=== PATIENT | male | born 1955 | race Caucasian/White ===

== ENCOUNTER → 2016-05-07 | Outpatient (CLI) | payer BC ==
[2016-05-07 16:41] VITALS: BP 122/74
== END ==
LOC: MHUC 16:11
PROVIDERS: ATTEND Physician Assistant
DX: L08.89 Other specified local infections of the skin and subcutaneous tissue (principal)
CPT/HCPCS: 99213

== ENCOUNTER 2016-05-09 13:16 | Emergency (ER) | payer BC ==
[~2016-05-09] VITALS: Ht 185.4 cm; Wt 119.0 kg
[2016-05-09] MEDS ORDERED: KETOROLAC 60 MG/2 ML (TORADOL) VIAL IM ONE (13:40)
[2016-05-09 14:49] LABS: BASOPHILS % (AUTO) 0 % (0-2); EOSINOPHILS # (AUTO) 0.1 10^3uL; EOSINOPHILS % (AUTO) 1 % (0-4); LYMPHOCYTES # (AUTO) 1.4 X10^3; MEAN CORPUSCULAR HEMOGLOBIN 30.9 PG (26.0-34.0); MEAN CORPUSCULAR HGB CONC 35.4 g/dL (31.0-37.0); MEAN CORPUSCULAR VOLUME 87 FL (80-100); MEAN PLATELET VOLUME 10.5 FL (6.0-9.5); MONOCYTES # (AUTO) 1.1 X10^3; MONOCYTES % (AUTO) 11 % (3-11); NEUTROPHILS # (AUTO) 7.1 X10^3; NEUTROPHILS % (AUTO) 73 % (51-67); PLATELET COUNT 195 10^3uL (150-450); WHITE BLOOD COUNT 9.74 10^3uL (4.0-11.0)
[2016-05-09 15:00] LABS: ALBUMIN 3.9 g/dL (3.4-5.0); ANION GAP 13.3 MEQ/L (3-15); CALCULATED IONIZED CALCIUM 3.8 mg/dL (3.8-4.6); TOTAL PROTEIN 7.1 g/dL (6.4-8.5)
[2016-05-09 15:10] VITALS: BP 131/78
[2016-05-09 15:26] LABS: ERYTHROCYTE SEDIMENTATION RT* 30 mm/hr (0-19)
== END 2016-05-09 15:22 | disposition home or self-care (01) ==
LOC: ED 13:17
DX: M10.071 Idiopathic gout, right ankle and foot (principal)
CPT/HCPCS: 36415; 80053; 84550; 85025; 85652; 86140; 96372; 99282; J1885; 99281

== ENCOUNTER → 2016-05-09 | Outpatient (CLI) | payer BC ==
[2016-05-09 11:25] VITALS: BP 118/68
== END ==
LOC: MHUC 09:16
PROVIDERS: ATTEND Physician Assistant
DX: L08.89 Other specified local infections of the skin and subcutaneous tissue (principal)

== ENCOUNTER 2016-05-13 17:22 | Inpatient (IN) | payer BC ==
[~2016-05-13] VITALS: Ht 185.4 cm; Wt 117.8 kg
[2016-05-13] MEDS ORDERED: VANCOMYCIN 1,000 MG in SODIUM CHLORIDE 250 ML IV ONE (17:30)
[2016-05-13] MEDS ORDERED: VANCOMYCIN PHARMACY PROTOCOL IV SCH ×2 (17:30)
[2016-05-13] MEDS ORDERED: ACETAMINOPHEN 325 MG TAB (TYLENOL) PO PRN (17:30)
[2016-05-13] MEDS ORDERED: DEXTROSE 50% 25 GM/50 ML SYRINGE IV PRN (17:30)
[2016-05-13] MEDS ORDERED: PROMETHAZINE HCL INJ 12.5 MG in SODIUM CHLORIDE 25 ML IV PRN (17:30)
[2016-05-13] MEDS ORDERED: MAGNESIUM HYDROXIDE 80MG/ML (MILK OF MAGNESIA) 30 ML UDC PO PRN (17:30)
[2016-05-13] MEDS ORDERED: DEXTROSE ORAL GEL (GLUTOSE 40%) 15 GM TUBE PO PRN (17:30)
[2016-05-13] MEDS ORDERED: DOCUSATE SODIUM 100 MG (COLACE) CAP PO PRN (17:30)
[2016-05-13] MEDS: INSULIN LISPRO 1 UNIT/0.01 ML (HUMALOG) DOSE SC SCH ×2 (17:30→20:25)
[2016-05-13] MEDS ORDERED: POLYETHYLENE GLYCOL 17 GM (MIRALAX) PACKET PO PRN (17:30)
[2016-05-13] MEDS ORDERED: MAG HYDROX/AL HYDROX/SIMETH 200-200-20/5 ML (MAG-AL PLUS) 30 ML UDC PO PRN (17:30)
[2016-05-13] MEDS ORDERED: GLUCAGON EMERGENCY 1 MG/KIT IM PRN (17:30)
[2016-05-13] MEDS ORDERED: ONDANSETRON 4 MG (ZOFRAN) ORAL DISSOLVE TAB PO PRN (17:30)
[2016-05-13] MEDS ORDERED: CALCIUM CARBONATE CHEWABLE 300 MG (TUMS) TABLET PO PRN (17:30)
--- NOTE | 2016-05-13 17:30 | NUR ---
Patient admitted to room [address] Ching's office.
[2016-05-13 17:47] VITALS: BP 131/54
[2016-05-13 17:58] VITALS: BP 131/54
[2016-05-13 18:20] LABS: BASOPHILS % (AUTO) 0 % (0-2); EOSINOPHILS # (AUTO) 0.2 10^3uL; EOSINOPHILS % (AUTO) 2 % (0-4); MEAN CORPUSCULAR HEMOGLOBIN 31.2 PG (26.0-34.0); MEAN CORPUSCULAR VOLUME 87 FL (80-100); MONOCYTES # (AUTO) 1.3 X10^3; MONOCYTES % (AUTO) 11 % (3-11); NEUTROPHILS # (AUTO) 10.2 X10^3; NEUTROPHILS % (AUTO) 79 % (51-67); PLATELET COUNT 244 10^3uL (150-450); WHITE BLOOD COUNT 12.79 10^3uL (4.0-11.0)
[2016-05-13] MEDS ORDERED: SODIUM CHLORIDE 100 ML ONE (18:20)
--- NOTE | 2016-05-13 18:20 | NUR ---
IV access obtained in the right forearm. Vanco 1 gram infusing.
[2016-05-13] MEDS: NS FLUSH 10 ML PRN IV ×2 (18:22→20:56)
[2016-05-13] MEDS: metFORMIN 500 MG (GLUCOPHAGE) TABLET PO SCH (18:23)
[2016-05-13 18:49] LABS: ANION GAP 14.1 MEQ/L (3-15); CALCULATED IONIZED CALCIUM 3.7 mg/dL (3.8-4.6); TOTAL PROTEIN 7.5 g/dL (6.4-8.5)
[2016-05-13 18:55] LABS: MEAN CORPUSCULAR HGB CONC 35.7 g/dL (31.0-37.0)
[2016-05-13] MEDS: TERBINAFINE 1% TOP SCH (20:33)
[2016-05-13] MEDS: PIPERACILLIN/TAZOBACTAM 4.5 GM in SODIUM CHLORIDE 100 ML IV SCH (20:33)
[2016-05-14 00:32] VITALS: BP 118/54
[2016-05-14] MEDS: PIPERACILLIN/TAZOBACTAM 4.5 GM in SODIUM CHLORIDE 100 ML IV SCH ×3 (05:15→21:09)
[2016-05-14 06:04] LABS: BASOPHILS % (AUTO) 0 % (0-2); EOSINOPHILS # (AUTO) 0.2 10^3uL; EOSINOPHILS % (AUTO) 1 % (0-4); LYMPHOCYTES # (AUTO) 1.4 X10^3; MEAN CORPUSCULAR HEMOGLOBIN 30.6 PG (26.0-34.0); MEAN CORPUSCULAR HGB CONC 34.8 g/dL (31.0-37.0); MEAN CORPUSCULAR VOLUME 88 FL (80-100); MONOCYTES # (AUTO) 1.6 X10^3; MONOCYTES % (AUTO) 13 % (3-11); NEUTROPHILS # (AUTO) 9.6 X10^3; NEUTROPHILS % (AUTO) 75 % (51-67); PLATELET COUNT 244 10^3uL (150-450); WHITE BLOOD COUNT 12.91 10^3uL (4.0-11.0)
[2016-05-14] MEDS: INSULIN LISPRO 1 UNIT/0.01 ML (HUMALOG) DOSE SC SCH ×4 (06:05→21:00)
[2016-05-14 06:48] LABS: ALBUMIN 3.6 g/dL (3.4-5.0); ANION GAP 13.3 MEQ/L (3-15); PHOSPHORUS 4.4 mg/dL (2.4-4.9)
[2016-05-14 07:43] VITALS: BP 101/52
--- NOTE | 2016-05-14 07:56 | NUR ---
Pt wakens easily to verbal stimuli. Alert/oriented x4. States his leg looks better to him, not as red. And that his foot does not feel as tight or painful as yesterday. Offered Tramadol and Tylenol to premedicate in anticipation in ADLs, but pt refused meds- states "I just deal with it." Encourage patient to let nurse know if pain medications are needed. Verbalizes understanding. Will cont to monitor. Redness to Rt foot is slightly outside marker line from 05/13. warm to touch, tender to touch- pedal pulse present, skin blanchable. Will cont to monitor.
[2016-05-14] MEDS: metFORMIN 500 MG (GLUCOPHAGE) TABLET PO SCH ×2 (08:20→17:57)
[2016-05-14] MEDS: HYDROCHLOROTHIAZIDE 25 MG (HCTZ) TAB PO SCH (08:20)
[2016-05-14] MEDS: NS FLUSH 3 ML DAILY IV SCH ×2 (08:23→21:10)
[2016-05-14] MEDS: lisINopril 10 MG (PRINIVIL) TABLET PO SCH (08:23)
[2016-05-14] MEDS: ENOXAPARIN 40 MG/0.4 ML (LOVENOX) SYR SC SCH (08:24)
[2016-05-14] MEDS: TERBINAFINE 1% TOP SCH ×2 (08:24→21:20)
[2016-05-14] MEDS: VANCOMYCIN COMPOUNDED BY PHARMACY IV SCH ×2 (09:45→21:00)
[2016-05-14] MEDS ORDERED: SODIUM CHLORIDE 250 ML ONE (09:45)
[2016-05-14] MEDS: VANCOMYCIN 1750 MG in NS IV 475 ML IV SCH ×2 (09:47→21:09)
--- NOTE | 2016-05-14 10:32 | NUR ---
NUTRITION ASSESSMENT Level 1 Patient: Nito Moser Age/Sex: 60/M Date Screened: 05-14-16 Weight: 259.1#/117.8 kg Height: 73 inches Primary Diagnosis: right foot cellulitis Diet Order: medium diabetic Relevant labs: glucose 114, Hgb A1c 5.2 Food allergies: N Nutrition Assessment Criteria Age over 80: N Body Mass Index (BMI) under 19: N Admission Screening Indicates Risk? N Moderate/High Risk Diagnosis: N TPN or PPN: N NPO or clear liquid diet: N Serum Glucose <70 or >180: N Hgb A1c >6.7: N Total: 0 points Risk Screen: _X_ Patient at low nutritional risk based on available data; reevaluate in 5-7 days __ Patient at moderate nutritional risk based on available data; reevaluate in 3-5 days __ Patient at high nutritional risk; complete Nutrition Assessment within 48 hours of admission. Comments: Pt. denied GI concerns or weight changes. States good appetite, eating 100% medium diabetic diet. Will reassess as documented above.
--- NOTE | 2016-05-14 10:36 | NUR ---
Vancomycin Dosing: Pharmacy managed S: Rt foot cellulitis: Empiric coverage with Pip/Tazo & vancomycin. Cultures pending. O: 60 y/o Male Pt wt. = 118 kg ABW = 95kg SCr = 0.79 CrCl = 130 ml/min A/P: Vancomycin 1750 mg IV q12h. Trough prediction = 16.8 mcg/ml fo therapy goal of 15-20mcg/ml. Trough to be drawn before 5th dose (05-16-16 @ 0930). Will continue to monitor and adjust if needed. Addendum: 05/14/16 at 1048 by Elizabet Armenta PHARM TROUGH TIMED FOR 05-16-16 @ 0830.
--- NOTE | 2016-05-14 14:37 | NUR ---
MULTIDISCIPLINARY MTG/DR. HOLT: Pt. admitted with cellulitis of the foot and placed on broad spectrum antibiotics. Pt. had been treated in the outpatient setting but saw no improvement. Pt. will receive a tetanus shot during his stay. Pt. to possibly discharge home tomorrow on Augmentin. No discharge needs identified at this time.
[2016-05-14] MEDS ORDERED: TETANUS, DIPTHERIA, PERTUSSIS (ADACELL) VACCINE 0.5 ML VIAL IM ONE (15:00)
--- NOTE | 2016-05-14 16:09 | NUR ---
Tdap IM given in Lt Deltoid.
[2016-05-14 16:10] VITALS: BP 109/61
--- NOTE | 2016-05-14 18:41 | NUR ---
Pt ate supper without difficulty. SL at this time.
--- NOTE | 2016-05-14 19:50 | NUR ---
Pt is sitting up in recliner visiting with friends, alert and oriented x 4, Resp are even and nonlabored, LCTAB, HRRR, BS are active x 4 quadrants. Right foot is swollen, +3 edema, has large blister filled area to right small toe, and scab to bottom of right second toe. Encouraged pt to keep feet elevated and sock and shoe off of that foot. SL is patent, no redness, swelling, or s/s of infection noted at this time. Pt verbalizes understanding at this time. Denies pain or discomfort at this time. Call light is in reach, will continue to monitor.
--- NOTE | 2016-05-14 21:35 | NUR ---
Pt complains of pain to right foot, rates 6/10, Gave 1 tab PO of Tramadol 50mg PO for discomfort. Will continue to monitor.
[2016-05-15 00:22] VITALS: BP 131/65
--- NOTE | 2016-05-15 04:47 | NUR ---
Pt has been resting in bed asleep most of this shift, call light is in reach, will continue to monitor.
[2016-05-15] MEDS: PIPERACILLIN/TAZOBACTAM 4.5 GM in SODIUM CHLORIDE 100 ML IV SCH ×3 (05:57→21:23)
[2016-05-15 06:16] LABS: ALBUMIN 3.6 g/dL (3.4-5.0); PHOSPHORUS 4.4 mg/dL (2.4-4.9)
[2016-05-15 06:25] LABS: BASOPHILS % (AUTO) 0 % (0-2); EOSINOPHILS # (AUTO) 0.2 10^3uL; EOSINOPHILS % (AUTO) 2 % (0-4); LYMPHOCYTES # (AUTO) 1.3 X10^3; MEAN CORPUSCULAR HEMOGLOBIN 30.8 PG (26.0-34.0); MEAN CORPUSCULAR HGB CONC 34.8 g/dL (31.0-37.0); MEAN CORPUSCULAR VOLUME 89 FL (80-100); MEAN PLATELET VOLUME 9.9 FL (6.0-9.5); MONOCYTES # (AUTO) 1.3 X10^3; MONOCYTES % (AUTO) 12 % (3-11); NEUTROPHILS # (AUTO) 8.4 X10^3; NEUTROPHILS % (AUTO) 75 % (51-67); PLATELET COUNT 249 10^3uL (150-450); WHITE BLOOD COUNT 11.28 10^3uL (4.0-11.0)
[2016-05-15] MEDS: INSULIN LISPRO 1 UNIT/0.01 ML (HUMALOG) DOSE SC SCH ×4 (07:29→21:00)
[2016-05-15 07:40] VITALS: BP 136/78
--- NOTE | 2016-05-15 07:42 | NUR ---
Pt resting in bed, SCDs in place- taken off now at pt request. Rt foot remains Red, swollen, small crusted area below 4th toe. Pt denies need for pain meds. Encouraged pt to keep RLE elevated today. IV intact to Rt wrist- Zosyn infusing as ordered. Remains on RA- Resp even, nonlab. States he will get up to dress before bfst. Call light within reach- calls appropriately for assist.
[2016-05-15] MEDS: lisINopril 10 MG (PRINIVIL) TABLET PO SCH (08:27)
[2016-05-15] MEDS: ENOXAPARIN 40 MG/0.4 ML (LOVENOX) SYR SC SCH (08:27)
[2016-05-15] MEDS: VANCOMYCIN COMPOUNDED BY PHARMACY IV SCH ×2 (08:27→21:00)
[2016-05-15] MEDS: HYDROCHLOROTHIAZIDE 25 MG (HCTZ) TAB PO SCH (08:27)
[2016-05-15] MEDS: metFORMIN 500 MG (GLUCOPHAGE) TABLET PO SCH ×2 (08:27→17:14)
[2016-05-15] MEDS: TERBINAFINE 1% TOP SCH ×2 (09:31→21:23)
[2016-05-15] MEDS: VANCOMYCIN 1750 MG in NS IV 475 ML IV SCH ×2 (10:24→21:23)
--- NOTE | 2016-05-15 13:30 | NUR ---
Tramadol 50mg PO given for 10/08 Rt foot pain- pain is located on top of foot at open area. Still draining clear yellow fluid from open area. IV Zosyn infusing as ordered.
[2016-05-15 16:18] VITALS: BP 127/69
--- NOTE | 2016-05-15 19:55 | NUR ---
Pt is sitting up in recliner watching tv, alert and oriented x 4, Resp are even and nonlabored, LCTAB, , BS are active x 4 quadrants. Denies pain or discomfort at this time. SL is patent, no redness, swelling, or s/s of infection noted at this time. See assessment for further information. Call light is in reach, will continue to monitor.
[2016-05-15] MEDS: NS FLUSH 3 ML DAILY IV SCH (21:24)
--- NOTE | 2016-05-15 21:25 | NUR ---
Pt complains of pain to right foot, rates 7/10, gave 2 tabs PO of Ultram 50mg for discomfort. Will continue to monitor.
[2016-05-16 00:23] VITALS: BP 104/71
--- NOTE | 2016-05-16 04:09 | NUR ---
Pt is resting in bed asleep, does not appear in pain or discomfort at this time, call light is in reach, will continue to monitor.
[2016-05-16] MEDS: PIPERACILLIN/TAZOBACTAM 4.5 GM in SODIUM CHLORIDE 100 ML IV SCH ×3 (05:14→21:06)
[2016-05-16] MEDS: INSULIN LISPRO 1 UNIT/0.01 ML (HUMALOG) DOSE SC SCH ×4 (07:30→21:00)
[2016-05-16 08:25] VITALS: BP 141/75
[2016-05-16] MEDS: metFORMIN 500 MG (GLUCOPHAGE) TABLET PO SCH ×2 (09:39→18:02)
[2016-05-16] MEDS: lisINopril 10 MG (PRINIVIL) TABLET PO SCH (09:40)
[2016-05-16] MEDS: HYDROCHLOROTHIAZIDE 25 MG (HCTZ) TAB PO SCH (09:40)
[2016-05-16] MEDS: ENOXAPARIN 40 MG/0.4 ML (LOVENOX) SYR SC SCH (09:41)
[2016-05-16] MEDS: VANCOMYCIN COMPOUNDED BY PHARMACY IV SCH ×2 (09:45→21:07)
[2016-05-16] MEDS: NS FLUSH 3 ML PRN IV (09:51)
[2016-05-16] MEDS: VANCOMYCIN 1750 MG in NS IV 475 ML IV SCH (09:56)
[2016-05-16] MEDS: TERBINAFINE 1% TOP SCH ×2 (10:43→21:07)
[2016-05-16] MEDS ORDERED: SODIUM CHLORIDE 100 ML ONE (10:46)
--- NOTE | 2016-05-16 13:21 | NUR ---
Vancomycin Dosing: Pharmacy managed S: Rt foot cellulitis O: 60 y/o Male Pt wt. = 118 kg, ABW = 95kg, SCr = 0.80, CrCl = 130 ml/min, WBC 11,300, CRP 23.5 mg/dL, vanco trough 9.3 mcg/mL, blood cx negative to date, wound cx pending. A/P: Change vancomycin dosing to 1500 mg IV q8h to achieve therapeutic goal of 15-20mcg/ml. Draw next trough prior to 5th dose (05-18-16 @ 0530). Will continue to monitor and adjust if needed.
--- NOTE | 2016-05-16 15:00 | NUR ---
MED REC COMPLETE--current med list obtained from external med history application and retail pharmacy ([facility]).
[2016-05-16 15:33] VITALS: BP 117/61
[2016-05-16] MEDS ORDERED: VANCOMYCIN 1500 MG in NS IV 300 ML IV SCH ×3 (16:00)
--- NOTE | 2016-05-16 19:35 | NUR ---
Pt is sitting up in recliner watching tv, alert and oriented x 4, Resp are even and nonlabored, LCTAB, , BS are active x 4 quadrants. Right foot continues to be red, has +2 edema to right foot, scabbed area to left small toe, and scabbed area to bottom of 2nd toe. Denies pain or discomfort at this time. SL is patent, no redness, swelling, or s/s of infection noted at this time. See assessment for further information. Call light is in reach, will continue to monitor.
[2016-05-16] MEDS: VANCOMYCIN 1500 MG in NS IV 300 ML IV SCH ×3 (21:07)
[2016-05-17 00:37] VITALS: BP 125/61
--- NOTE | 2016-05-17 04:10 | NUR ---
Pt is resting in bed asleep, does not appear in pain or discomfort at this time, call light is in reach, will continue to monitor.
[2016-05-17] MEDS: PIPERACILLIN/TAZOBACTAM 4.5 GM in SODIUM CHLORIDE 100 ML IV SCH ×3 (04:59→20:47)
[2016-05-17] MEDS: VANCOMYCIN 1500 MG in NS IV 300 ML IV SCH ×9 (04:59→20:47)
[2016-05-17] MEDS: VANCOMYCIN COMPOUNDED BY PHARMACY IV SCH ×3 (06:00→21:24)
[2016-05-17 06:05] LABS: BASOPHILS % (AUTO) 1 % (0-2); EOSINOPHILS # (AUTO) 0.4 10^3uL; EOSINOPHILS % (AUTO) 3 % (0-4); LYMPHOCYTES # (AUTO) 1.4 X10^3; MEAN CORPUSCULAR HEMOGLOBIN 29.9 PG (26.0-34.0); MEAN CORPUSCULAR HGB CONC 34.1 g/dL (31.0-37.0); MEAN CORPUSCULAR VOLUME 88 FL (80-100); MEAN PLATELET VOLUME 9.2 FL (6.0-9.5); MONOCYTES # (AUTO) 1.2 X10^3; MONOCYTES % (AUTO) 11 % (3-11); NEUTROPHILS % (AUTO) 71 % (51-67); PLATELET COUNT 306 10^3uL (150-450); WHITE BLOOD COUNT 11.14 10^3uL (4.0-11.0)
[2016-05-17 06:27] LABS: ALBUMIN 3.3 g/dL (3.4-5.0); ANION GAP 13.7 MEQ/L (3-15); TOTAL PROTEIN 6.6 g/dL (6.4-8.5)
[2016-05-17] MEDS: INSULIN LISPRO 1 UNIT/0.01 ML (HUMALOG) DOSE SC SCH ×4 (07:30→21:00)
[2016-05-17 08:00] VITALS: BP 119/75
--- NOTE | 2016-05-17 08:30 | NUR ---
IV SITE PINK & PAINFUL AT THE END OF THE NS FLUSH FOLLOWING VANCO, NO EDEMA OR BLANCHING. IVL DC'D INTACT.
[2016-05-17] MEDS: HYDROCHLOROTHIAZIDE 25 MG (HCTZ) TAB PO SCH (09:07)
[2016-05-17] MEDS: lisINopril 10 MG (PRINIVIL) TABLET PO SCH (09:07)
[2016-05-17] MEDS: ENOXAPARIN 40 MG/0.4 ML (LOVENOX) SYR SC SCH (09:08)
[2016-05-17] MEDS: metFORMIN 500 MG (GLUCOPHAGE) TABLET PO SCH ×2 (09:08→17:40)
[2016-05-17] MEDS: TERBINAFINE 1% TOP SCH ×2 (09:08→20:48)
[2016-05-17] MEDS: NS FLUSH 3 ML DAILY IV SCH (09:30)
--- NOTE | 2016-05-17 09:30 | NUR ---
RIGHT ANT FOOT WITH QUARTER SZ WOUND NOTED WAS PRESENT ON ADMISSION, YESTERDAY WOUND WAS CLOSED WITHOUT DRAINAGE, TODAY WOUND IS NOTED TO BE OOZING CLOUDY RED DRAINAGE, WHEN PT GETS UP TO CHAIR DRAINAGE INCREASES AND RUNS ONTO FLOOR. PT AMBS TO SHOWER, DURING SHOWER PT & VEHICLE AND EQUIPMENT CLEANER REPORT A GARCIA "CORE" RAISED UP IN CENTER OF LARGER WOUND & EASILY WIPED AWAY, THIS WAS REPORTED TO DR. HOLT.
--- NOTE | 2016-05-17 09:30 | NUR ---
NEW IV ANGIOCATH INSERTED IN LEFT WRIST, #20G, FLUSHES WELL WITHOUT PAIN/EDEMA. PT TO SHOWER PRIOR TO STARTING ZOSYN.
--- NOTE | 2016-05-17 13:30 | NUR ---
WOUND ON ANT RIGHT FOOT RINSED WITH SALINE, SMALL AMT MURIPICIN APPLIED TO GAUZE 4X4, THIS GAUZE PLUS 4 OTHERS WERE PLACED ON WOUND AND SECURED WITH 4" JENARO.
[2016-05-17] MEDS: MUPIROCIN 2% OINT 22 GM (BACTROBAN) TUBE TOP SCH ×2 (13:48→21:23)
[2016-05-17] MEDS: IBUPROFEN 600 MG (MOTRIN) TAB PO PRN (13:55)
[2016-05-17] MEDS ORDERED: SODIUM CHLORIDE 100 ML ONE (14:08)
[2016-05-17 16:05] VITALS: BP 117/68
--- NOTE | 2016-05-17 19:35 | NUR ---
Pt is sitting up in recliner visiting with friends, alert and oriented x 4, Resp are even and nonlabored, LCTAB, HRRR, BS are active x 4 quadrants. Right foot is swollen, +2 edema, has 1cm diameter open area below right small toe, draining clear yellow drainage, dressing is changed, had large amount of yellow drainage on dressing. Has scab to bottom of right second toe. Encouraged pt to keep feet elevated and sock and shoe off of that foot. SL is patent, no redness, swelling, or s/s of infection noted at this time. Pt verbalizes understanding at this time. Denies pain or discomfort at this time. Call light is in reach, will continue to monitor.
[2016-05-18 00:14] VITALS: BP 123/68
--- NOTE | 2016-05-18 04:19 | NUR ---
Pt is resting in bed asleep, does not appear in pain or discomfort at this time, call light is in reach, will continue to monitor.
[2016-05-18] MEDS: VANCOMYCIN COMPOUNDED BY PHARMACY IV SCH ×3 (05:11→21:57)
[2016-05-18] MEDS: VANCOMYCIN 1500 MG in NS IV 300 ML IV SCH ×9 (05:11→21:56)
[2016-05-18] MEDS: PIPERACILLIN/TAZOBACTAM 4.5 GM in SODIUM CHLORIDE 100 ML IV SCH ×2 (05:11→16:09)
[2016-05-18] MEDS: INSULIN LISPRO 1 UNIT/0.01 ML (HUMALOG) DOSE SC SCH ×4 (07:30→20:25)
[2016-05-18] MEDS: NS FLUSH 3 ML DAILY IV SCH (08:52)
[2016-05-18 08:54] VITALS: BP 121/70
[2016-05-18] MEDS: metFORMIN 500 MG (GLUCOPHAGE) TABLET PO SCH ×2 (08:57→18:38)
[2016-05-18] MEDS: ENOXAPARIN 40 MG/0.4 ML (LOVENOX) SYR SC SCH (08:57)
[2016-05-18] MEDS: HYDROCHLOROTHIAZIDE 25 MG (HCTZ) TAB PO SCH (08:57)
[2016-05-18] MEDS: lisINopril 10 MG (PRINIVIL) TABLET PO SCH (08:57)
--- NOTE | 2016-05-18 12:51 | NUR ---
MULTIDISCIPLINARY MTG/DR. LYNN: Pt. remains on vanco. Pt. was unable to discharge over the weekend due to worsening of the abscess on his foot. Will assess today and determine if Pt. is able to discharge today. No discharge needs identified at this time.
[2016-05-18] MEDS: MUPIROCIN 2% OINT 22 GM (BACTROBAN) TUBE TOP SCH ×2 (13:39→21:21)
[2016-05-18] MEDS: TERBINAFINE 1% TOP SCH ×2 (13:39→21:21)
[2016-05-18] MEDS: NS FLUSH 3 ML PRN IV ×2 (14:07→18:38)
[2016-05-18] MEDS: SODIUM CHLORIDE 100 ML INJ PRN (14:07)
[2016-05-18] MEDS ORDERED: SODIUM CHLORIDE 100 ML ONE (14:13)
[2016-05-18] MEDS: IBUPROFEN 600 MG (MOTRIN) TAB PO PRN (14:17)
[2016-05-18 16:06] VITALS: BP 135/79
--- NOTE | 2016-05-18 17:45 | NUR ---
To radiology for MRI.
--- NOTE | 2016-05-18 18:35 | NUR ---
Back on the floor. He reports pain increased while in MRI but he denies the need for any pain medication at this time. He has cooperated with cares throughout the shift but he has to be reminded to keep his foot elevated.
[2016-05-18] MEDS: NS FLUSH 10 ML PRN IV (21:57)
[2016-05-19 00:17] VITALS: BP 118/69
[2016-05-19 06:03] LABS: MEAN CORPUSCULAR HEMOGLOBIN 30.7 PG (26.0-34.0); MEAN CORPUSCULAR HGB CONC 35.2 g/dL (31.0-37.0); MEAN CORPUSCULAR VOLUME 87 FL (80-100); MEAN PLATELET VOLUME 9.2 FL (6.0-9.5); PLATELET COUNT 324 10^3uL (150-450); WHITE BLOOD COUNT 8.31 10^3uL (4.0-11.0)
[2016-05-19 06:09] LABS: BAND NEUTROPHILS % 0 % (0-6); EOSINOPHILS % 0 % (0-4); LYMPHOCYTES # 0.7 #; MONOCYTES # 0.8 #; MONOCYTES % 10 % (3-11); SEGMENTED NEUTROPHILS % 82 % (51-67); TOTAL CELLS COUNTED 100
[2016-05-19 06:10] LABS: RBC MORPH NORMAL (NORMAL)
[2016-05-19] MEDS: VANCOMYCIN COMPOUNDED BY PHARMACY IV SCH ×3 (06:11→21:28)
[2016-05-19] MEDS: NS FLUSH 10 ML PRN IV (06:11)
[2016-05-19] MEDS: VANCOMYCIN 1500 MG in NS IV 300 ML IV SCH ×9 (06:11→21:28)
[2016-05-19] MEDS: INSULIN LISPRO 1 UNIT/0.01 ML (HUMALOG) DOSE SC SCH ×4 (06:14→21:00)
--- NOTE | 2016-05-19 06:17 | NUR ---
Pt rests well throughout the night. Has complied with elevating foot most of the time. Ambulates several laps around unit this shift. Denies the need for pain medication. Resp even and non labored on RA. Vanco infusing w/o difficulty.
[2016-05-19 06:41] LABS: ALBUMIN 3.1 g/dL (3.4-5.0); ANION GAP 12.7 MEQ/L (3-15); CALCULATED IONIZED CALCIUM 4.1 mg/dL (3.8-4.6); ERYTHROCYTE SEDIMENTATION RT* 76 mm/hr (0-19); MAGNESIUM* 2.2 mg/dL (1.6-2.3); TOTAL PROTEIN 6.3 g/dL (6.4-8.5)
[2016-05-19 08:05] VITALS: BP 124/73
[2016-05-19] MEDS: NS FLUSH 3 ML DAILY IV SCH (08:51)
[2016-05-19] MEDS: lisINopril 10 MG (PRINIVIL) TABLET PO SCH (09:08)
[2016-05-19] MEDS: HYDROCHLOROTHIAZIDE 25 MG (HCTZ) TAB PO SCH (09:08)
[2016-05-19] MEDS: ENOXAPARIN 40 MG/0.4 ML (LOVENOX) SYR SC SCH (09:08)
[2016-05-19] MEDS: metFORMIN 500 MG (GLUCOPHAGE) TABLET PO SCH ×2 (09:08→18:08)
--- NOTE | 2016-05-19 12:00 | NUR ---
Dressing on right foot removed so Dr. Nava can assess the wound. Discussed patient's MRI findings with MAMADOU and
--- NOTE | 2016-05-19 12:15 | NUR ---
Anesthesia notified of request for PICC line placement.
[2016-05-19] MEDS: TERBINAFINE 1% TOP SCH ×2 (13:00→21:27)
[2016-05-19] MEDS: MUPIROCIN 2% OINT 22 GM (BACTROBAN) TUBE TOP SCH ×2 (13:00→21:27)
--- NOTE | 2016-05-19 14:00 | NUR ---
Dressing remains off of right foot because Dr. Brasher will be in for a consultation.
[2016-05-19] MEDS: NS FLUSH 3 ML PRN IV (14:15)
[2016-05-19] MEDS: SODIUM CHLORIDE 100 ML INJ PRN (14:20)
[2016-05-19] MEDS: IBUPROFEN 600 MG (MOTRIN) TAB PO PRN (14:29)
[2016-05-19 15:50] VITALS: BP 144/83
--- NOTE | 2016-05-19 16:00 | NUR ---
Patient has cooperated better with elevating right foot this afternoon and it is significantly less red and less edematous. The patient is cooperative with staff but frustrated with his new diagnosis and the uncertainty that goes with it. Educated patient on the importance of keeping foot elevated.
--- NOTE | 2016-05-19 17:30 | NUR ---
Dr. Anshu archer for consultation.
--- NOTE | 2016-05-19 17:45 | NUR ---
Right foot dressing reapplied after consult.
--- NOTE | 2016-05-19 18:45 | NUR ---
Consent for OR on the chart.
[2016-05-19 23:29] VITALS: BP 127/76
[2016-05-20] VITALS (12 sets, daily range): BP systolic 119–134; BP diastolic 64–82
--- NOTE | 2016-05-20 03:43 | NUR ---
Pt is resting in bed asleep, does not appear in pain or discomfort at this time, call light is in reach, will continue to monitor.
[2016-05-20] MEDS: VANCOMYCIN 1500 MG in NS IV 300 ML IV SCH ×9 (05:10→21:25)
[2016-05-20] MEDS: VANCOMYCIN COMPOUNDED BY PHARMACY IV SCH ×3 (05:10→21:25)
[2016-05-20 06:16] LABS: MEAN CORPUSCULAR HEMOGLOBIN 29.9 PG (26.0-34.0); MEAN CORPUSCULAR HGB CONC 34.4 g/dL (31.0-37.0); MEAN CORPUSCULAR VOLUME 87 FL (80-100); MEAN PLATELET VOLUME 8.9 FL (6.0-9.5); PLATELET COUNT 337 10^3uL (150-450); WHITE BLOOD COUNT 7.79 10^3uL (4.0-11.0)
[2016-05-20 06:36] LABS: ALBUMIN 3.7 g/dL (3.4-5.0); ANION GAP 13.7 MEQ/L (3-15); CALCULATED IONIZED CALCIUM 3.9 mg/dL (3.8-4.6); TOTAL PROTEIN 7.3 g/dL (6.4-8.5)
[2016-05-20 06:44] LABS: BAND NEUTROPHILS % 3 % (0-6); EOSINOPHILS % 4 % (0-4); LYMPHOCYTES # 1.9 #; MONOCYTES # 0.6 #; MONOCYTES % 9 % (3-11); RBC MORPH NORMAL (NORMAL); SEGMENTED NEUTROPHILS % 59 % (51-67); TOTAL CELLS COUNTED 100
[2016-05-20 06:58] LABS: ERYTHROCYTE SEDIMENTATION RT* 68 mm/hr (0-19)
[2016-05-20] MEDS: INSULIN LISPRO 1 UNIT/0.01 ML (HUMALOG) DOSE SC SCH ×4 (07:30→20:28)
[2016-05-20] MEDS: metFORMIN 500 MG (GLUCOPHAGE) TABLET PO SCH ×2 (07:46→17:36)
[2016-05-20] MEDS ORDERED: LACTATED RINGERS 1,000 ML IV ONE (07:50)
--- NOTE | 2016-05-20 07:57 | NUR ---
Pt resting quietly in bed, alert & oriented, speech clear, denies pain. Lungs clear, on room air. Abdomen soft, non-tender, active bowel sounds. Pt has been NPO since midnight, has snacks at bedside, though states "I haven't touched them, and I won't". Right foot elevated on pillow, wrapped, no sock, no drainage noted. Slight 1+ edema noted to mid doll on right leg. No edema noted to left leg. SL to left FA patent, LR with straight tubing ready for surgery. Pt verbalizes understanding of surgical procedure this morning, consents signed on prior shift. Call light in reach. Will round frequently for cares.
--- NOTE | 2016-05-20 08:29 | NUR ---
Surgery staff here to take pt down to pre-op area.
[2016-05-20] MEDS ORDERED: LACTATED RINGERS 1,000 ML IV SCH (08:30)
[2016-05-20] MEDS ORDERED: BUPIVACAINE 0.25% (MARCAINE) 30 ML VIAL ONE (08:52)
[2016-05-20] MEDS ORDERED: LIDOCAINE 1% (XYLOCAINE) 20 ML VIAL ONE (08:53)
[2016-05-20] MEDS ORDERED: SUCCINYLCHOLINE 20 MG/ML 10 ML VIAL ONE (08:54)
[2016-05-20] MEDS ORDERED: PROPOFOL 20 ML IV ONE (08:54)
[2016-05-20] MEDS ORDERED: ALFENTANIL 1,000 MCG/2 ML AMP IV ONE (08:55)
[2016-05-20] MEDS: MUPIROCIN 2% OINT 22 GM (BACTROBAN) TUBE TOP SCH (09:00)
[2016-05-20] MEDS: TERBINAFINE 1% TOP SCH (09:00)
[2016-05-20] MEDS: NS FLUSH 3 ML DAILY IV SCH (09:00)
[2016-05-20] MEDS ORDERED: BACITRACIN/POLYMYXIN OINTMENT 1 PACKET TOP ONE ×2 (09:35→09:37)
[2016-05-20] MEDS ORDERED: MUPIROCIN 2% OINT 22 GM (BACTROBAN) TUBE TOP ONE (09:37)
--- NOTE | 2016-05-20 10:44 | NUR ---
Pt returns from PACU, alert & oriented, speech clear. States "little waves of pain" but denies need for pain medication at this time. Right foot wrapped and placed on pillow for elevation. PICC line to left AC patent, infusing on transfer.
[2016-05-20] MEDS: HYDROCHLOROTHIAZIDE 25 MG (HCTZ) TAB PO SCH (12:02)
[2016-05-20] MEDS: lisINopril 10 MG (PRINIVIL) TABLET PO SCH (12:02)
[2016-05-20] MEDS: IBUPROFEN 600 MG (MOTRIN) TAB PO PRN (13:10)
--- NOTE | 2016-05-20 19:35 | NUR ---
Pt is sitting up in recliner visiting with friends and family. Alert and oriented x 4, Resp are even and nonlabored, LCTAB, HRRR, BS are active x 4 quadrants. Pt has kept leg elevated, dressing to right foot is clean, dry, and intact. Supplies for daily dressing change are on counter by bathroom sink. Pt rates pain, 3/10 at this time. Denies need for pain medication. PICC to LAC is patent, no redness, swelling, or s/s of infection noted at this time. Pt denies needs at this time, and is educated to call for assistance when getting up. Call light is in reach, will continue to monitor.
[2016-05-21 00:13] VITALS: BP 112/61
--- NOTE | 2016-05-21 04:15 | NUR ---
Pt is resting in bed with asleep, right leg is elevated, does not appear in pain or discomfort at this time. Call light is in reach, will continue to monitor.
[2016-05-21] MEDS: VANCOMYCIN 1500 MG in NS IV 300 ML IV SCH ×9 (05:17→21:38)
[2016-05-21] MEDS: VANCOMYCIN COMPOUNDED BY PHARMACY IV SCH ×3 (05:17→21:38)
[2016-05-21 07:30] VITALS: BP 136/69
[2016-05-21] MEDS: INSULIN LISPRO 1 UNIT/0.01 ML (HUMALOG) DOSE SC SCH ×4 (07:30→21:00)
[2016-05-21] MEDS ORDERED: MUPIROCIN 2% OINT 22 GM (BACTROBAN) TUBE TOP SCH (09:00)
[2016-05-21] MEDS ORDERED: TERBINAFINE 1% TOP SCH (09:00)
[2016-05-21] MEDS: NS FLUSH 3 ML DAILY IV SCH (09:00)
[2016-05-21] MEDS ORDERED: LIDOCAINE PF 1% (XYLOCAINE) 2 ML VIAL INJ ONE (09:35)
[2016-05-21] MEDS: HYDROCHLOROTHIAZIDE 25 MG (HCTZ) TAB PO SCH (09:41)
[2016-05-21] MEDS: metFORMIN 500 MG (GLUCOPHAGE) TABLET PO SCH ×2 (09:41→17:16)
[2016-05-21] MEDS: lisINopril 10 MG (PRINIVIL) TABLET PO SCH (09:42)
[2016-05-21] MEDS: ENOXAPARIN 40 MG/0.4 ML (LOVENOX) SYR SC SCH (09:42)
[2016-05-21] MEDS: LIDOCAINE 1% (XYLOCAINE) 20 ML VIAL INJ PRN (09:55)
--- NOTE | 2016-05-21 11:17 | NUR ---
MULTIDISCIPLINARY MTG/DR. CRUZ: Pt. to OR yesterday for drainage of abscess and dbridement of skin and soft tissue right distal foot. Pt. also had PICC line inserted. The redness has been decreasing. PT has been ordered to work with Pt. on heal walking and to assess Pt. for needs at home to remain safe. Dr. Brasher would like Pt. to be weight bearing on on his right foot until he is cleared by surgery. Pt. has been walking with a walker while at the hospital. Pt. will need outpatient IV antibiotics once a day for six weeks upon discharge. SW visited with Pt. about his outpatient antibiotics and his need for possible wound care. Pt. stated if they want me to pack my foot like they have been doing then he won't be able to do that himself. SW discussed going to [facility] for antibiotics and getting wound care through their wound care clinic since we don't have a wound care clinic here. SW also reviewed having home health services and receiving his needed services through them. SW explained what he would be financially responsible for and that he would have to be considered home bound. Pt. stated he wouldn't be able to be home bound. Pt. was agreeable to receiving services at the hospital. Addendum: 05/21/16 at 1323 by Irena Saba After visiting with PT NAT discovered Pt. would be able to come in as an outpatient for his wound care. PT would try to coordinate with him so he could come in before or after his IV antibiotics. NAT informed Pt. and of this. He stated he would like to know how often he would need the wound care and that would help make his decision. He said he just wants the best care and doesn't want to get another or worse infection.
--- NOTE | 2016-05-21 13:20 | NUR ---
Received report from Vivienne Pleitez RN. Assumed patient care.
[2016-05-21 15:30] VITALS: BP 125/70
[2016-05-21] MEDS: NS FLUSH 10 ML PRN IV (21:37)
[2016-05-21 23:49] VITALS: BP 134/80
[2016-05-22] MEDS: NS FLUSH 10 ML PRN IV (05:49)
[2016-05-22] MEDS: VANCOMYCIN 1500 MG in NS IV 300 ML IV SCH ×3 (05:49)
[2016-05-22] MEDS: VANCOMYCIN COMPOUNDED BY PHARMACY IV SCH (05:49)
--- NOTE | 2016-05-22 06:13 | NUR ---
Uneventful shift boss. Pt rests w/o complaints. States that pain in his foot is tolerable; denies need for medication. Antibiotics infusing into LAC PICC line. No needs at this time.
--- NOTE | 2016-05-22 06:50 | NUR ---
Received report from Amina Cantu RN. Assumed patient care. Patient is resting in bed with eyes closed. Patient does not appear to be in distress.
[2016-05-22] MEDS: INSULIN LISPRO 1 UNIT/0.01 ML (HUMALOG) DOSE SC SCH (07:05)
[2016-05-22 07:52] VITALS: BP 134/71
[2016-05-22] MEDS: metFORMIN 500 MG (GLUCOPHAGE) TABLET PO SCH (08:32)
[2016-05-22] MEDS: NS FLUSH 3 ML DAILY IV SCH (08:32)
[2016-05-22] MEDS: HYDROCHLOROTHIAZIDE 25 MG (HCTZ) TAB PO SCH (08:32)
[2016-05-22] MEDS: lisINopril 10 MG (PRINIVIL) TABLET PO SCH (08:33)
[2016-05-22] MEDS: ENOXAPARIN 40 MG/0.4 ML (LOVENOX) SYR SC SCH (08:34)
[2016-05-22] MEDS: LIDOCAINE 1% (XYLOCAINE) 20 ML VIAL INJ PRN (12:18)
== END 2016-05-22 14:45 | disposition home or self-care (01) | DRG 623 ==
LOC: INTOOBSV 17:22 → MED/SURG 17:22 → OBSVTOIN 17:22
PROVIDERS: ADMIT Internal Medicine; ATTEND Internal Medicine
PROC: 0JBQ0ZZ Excision of Right Foot Subcutaneous Tissue and Fascia, Open Approach (ICD-10-PCS; principal; 2016-05-20)
DX: E11.69 Type 2 diabetes mellitus with other specified complication (principal); M86.8X7 Other osteomyelitis, ankle and foot; L02.611 Cutaneous abscess of right foot; L03.115 Cellulitis of right lower limb; M65.171 Other infective (teno)synovitis, right ankle and foot; E11.621 Type 2 diabetes mellitus with foot ulcer; L97.511 Non-pressure chronic ulcer of other part of right foot limited to breakdown of skin; B35.3 Tinea pedis; E11.40 Type 2 diabetes mellitus with diabetic neuropathy, unspecified; I10 Essential (primary) hypertension
CPT/HCPCS: 36415; 71010; 73720; 80053; 80069; 80202; 83036; 83735; 85007; 85025; 85027; 85652; 86140; 87040; 87070; 87075; 87147; 87186; 90715